=== PATIENT | male | born 1985 | race African-American/Black ===

== ENCOUNTER 2022-02-15 18:25 | Emergency (ER) | payer SELFPAY ==
[~2022-02-15] VITALS: Ht 177.8 cm; Wt 83.9 kg
--- NOTE | 2022-02-15 18:43 | NUR ---
Pt did not want to be seen, wanted to leave. Pt refused to sign AMA form. Pt walked out.
== END 2022-02-15 18:52 | disposition left against medical advice (07) ==
LOC: ER 18:25
DX: I25.9 Chronic ischemic heart disease, unspecified (principal); Z53.29 Procedure and treatment not carried out because of patient's decision for other reasons
CPT/HCPCS: A4663